=== PATIENT | male | born 1985 | race African-American/Black ===

== ENCOUNTER 2019-06-13 20:57 | Emergency (ER) | payer OTHER ==
[2019-06-13 21:03] VITALS: BP 131/86; PULSE 70; TEMP 98; BMI 32.5
== END 2019-06-13 22:30 | disposition left against medical advice (07) ==
LOC: JERFT 20:57
DX: Z53.21 Procedure and treatment not carried out due to patient leaving prior to being seen by health care provider (principal)
CPT/HCPCS: 99281-25

== ENCOUNTER 2019-06-14 22:02 | Emergency (ER) | payer BC, OTHER ==
[2019-06-14 22:11] VITALS: BP 136/83; PULSE 68; TEMP 97.7; BMI 32.3
[2019-06-14] MEDS ORDERED: IBUPROFEN 400 MG TABLET (FP) PO ONE ×2 (22:44→22:55)
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
== END 2019-06-14 23:36 | disposition home or self-care (01) ==
LOC: FER 22:02
DX: S16.1XXA Strain of muscle, fascia and tendon at neck level, initial encounter (principal); V43.52XA Car driver injured in collision with other type car in traffic accident, initial encounter; Y93.89 Activity, other specified; Y92.410 Unspecified street and highway as the place of occurrence of the external cause
CPT/HCPCS: 72050-TC-FY; 72100-TC-FY; 99281-25